=== PATIENT | female | born 1965 | race Caucasian/White ===

== ENCOUNTER 2016-12-26 07:56 | Day surgery (SDC) | payer OTHER ==
[2016-12-25 14:47] VITALS: BMI 18.7
[2016-12-26] MEDS ORDERED: PROPOFOL 60 ML ONE (08:15)
[2016-12-26] MEDS ORDERED: LIDOCAINE HCL/PF 2% SDV 5ML VIAL ONE (08:15)
[2016-12-26 09:44] LABS: CHOLESTEROL 268 mg/dL (50-200); LDL CHOLESTEROL (ONLY SJRH) 190 mg/dL (5-100)
[2016-12-26 10:07] VITALS: TEMP 97.9
[2016-12-26 11:15] VITALS: BP 123/70; PULSE 59
--- NOTE | 2016-12-27 13:53 | PATH ---
Surgical Pathology Report Patient Name: [facility]. Rec. #: [id number] /Age/Gender: 1965 (Age: 51) / F Account: [id number] Location: [facility]-ENDOSCOPY Taken: 12/26/2016 Received: 12/26/2016 Reported: 12/27/2016 Physicians: Quang Cruz M.D. Specimen(s) Received A: BX DUODENUM B: BX BODY OF STOMACH Clinical History GERD, family history of gastric cancer Erythema Final Diagnosis A. DUODENUM, BIOPSY: DUODENAL MUCOSA WITH MILD CHRONIC INFLAMMATION. NO HISTOLOGIC EVIDENCE OF GLUTEN SENSITIVE ENTEROPATHY (CELIAC DISEASE). B. STOMACH, BODY, BIOPSY: GASTRIC OXYNTIC MUCOSA WITH MILD TO MODERATE CHRONIC GASTRITIS. IMMUNOSTAIN FOR H. PYLORI IS NEGATIVE FOR ORGANISMS. Electronically Signed Esteban Aldrich M.D. Gross Description A. Received in formalin, labeled "biopsy duodenum" are 2 soler, irregular portions of soft tissue measuring 0.1 and 0.2 cm in greatest dimension. The specimens are submitted in toto in one cassette. B. Received in formalin, labeled "biopsy body of stomach" are 2 soler, irregular portions of soft tissue measuring 0.1 and 0.3 cm in greatest dimension. The specimens are submitted in toto in one cassette. 12/26/2016 [facility]12[facility]26/2016
== END 2016-12-26 11:00 | disposition home or self-care (01) ==
LOC: JASU-ENDO 07:56
PROVIDERS: ATTEND Internal Medicine Gastroenterology
PROC: 0DJ08ZZ Inspection of Upper Intestinal Tract, Via Natural or Artificial Opening Endoscopic (ICD-10-PCS; principal; 2016-12-26 08:30)
DX: Z80.0 Family history of malignant neoplasm of digestive organs (principal); K29.50 Unspecified chronic gastritis without bleeding; K29.80 Duodenitis without bleeding
CPT/HCPCS: 36415; 80061; 83721; 88305-TC; 88342-TC